=== PATIENT | male | born 1955 ===

== ENCOUNTER → 2025-09-11 | Outpatient (CLI) | payer MEDICARE ==
[2025-09-11 11:57] LABS: Hematocrit 44.8 % (37.0-53.0); Hemoglobin 15.1 g/dL (13.5-17.5); Mean Corpuscular HGB Conc 33.7 g/dL (31.5-36.5); Mean Corpuscular Volume 91 fL (80-100); NRBC ABSOLUTE 0.00 K/mm3 (0.00-0.02); NRBC Auto 0.0 /100 WBC (0.0-0.2); Platelet Count 349 K/mm3 (150-400); RDW Coefficient Variation 14.2 % (11.7-14.2); RDW Standard Deviation 47.0 fL (35.1-46.3)
[2025-09-11 12:46] LABS: Alanine Aminotransfer (ALT/SGP 39 U/L (12-78); Albumin, Blood 3.6 g/dL (3.4-5.0); Albumin/Globulin Ratio 1.0 (0.8-1.8); Anion Gap 9 mmol/L (3-11); Aspartate Aminotrans (AST/SGOT 19 U/L (12-37); Bilirubin, Total 0.3 mg/dL (0.1-1.0); Blood Urea Nitrogen 33 mg/dL (8-24); C-REACTIVE PROTEIN, EXT RANGE <0.290 mg/dL (0.000-0.300); CO2, Blood 27 mmol/L (21-32); Calcium, Blood 9.2 mg/dL (8.5-10.1); Chloride, Blood 105 mmol/L (98-108); Creatinine, Blood 1.07 mg/dL (0.60-1.20); Globulin, Blood 3.6 g/dL (2.2-4.0); Glucose, Blood 206 mg/dL (70-99); Potassium, Blood 4.2 mmol/L (3.5-5.5); Sodium, Blood 137 mmol/L (136-145); Thyroid Stimulating Hormone 1.460 uIU/mL (0.360-4.800); Total Protein, Blood 7.2 g/dL (6.4-8.2)
[2025-09-13 02:10] LABS: RHEUMATOID FACTOR <10 IU/mL (0-14)
[2025-09-13 13:26] LABS: JO-1 HISTIDYL-TRNA SYNTHET,IGG 1 AU/mL (0-40)
[2025-09-13 19:45] LABS: ANTI-NUCLEAR AB ANA,IGG ELISA None Detected (None Detected)
[2025-09-14 14:49] LABS: CK TOTAL 53 U/L (39-308); CK-BB 0 % (0-0); CK-MACRO TYPE I 0 % (0-0); CK-MACRO TYPE II 0 % (0-0); CK-MB 0 % (0-4); CK-MM 100 % (96-100)
[2025-09-17 09:21] LABS: TESTOSTERONE, FREE BY DIALYSIS 6.1 pg/mL (47.0-244.0); TESTOSTERONE, TOTAL MASS SPEC 27.8 ng/dL (300.0-720.0)
== END ==
LOC: LAB 11:17 → LAB SHORT 11:17
DX: G72.9 Myopathy, unspecified (principal); R79.89 Other specified abnormal findings of blood chemistry
CPT/HCPCS: 80053; 82550; 82552; 84402; 84403; 84443; 85027; 85651; 86038; 86140; 86235; 86431